=== PATIENT | female | born 1955 | race Caucasian/White ===

== ENCOUNTER 2017-04-26 06:20 | Emergency (ER) | payer OTHER ==
[2017-04-26] MEDS: KETOROLAC 60 MG INJ IM (06:44)
[2017-04-26] MEDS: morphine 4 MG/ML VIAL IM (07:32)
[2017-04-26] MEDS: ONDANSETRON (ODT) 4 MG TAB ODT (07:33)
== END 2017-04-26 08:31 | disposition home or self-care (01) ==
LOC: FTE 06:20
DX: S82.252A Displaced comminuted fracture of shaft of left tibia, initial encounter for closed fracture (principal); S82.452A Displaced comminuted fracture of shaft of left fibula, initial encounter for closed fracture; X58.XXXA Exposure to other specified factors, initial encounter; Y92.9 Unspecified place or not applicable
CPT/HCPCS: 29505; 73590; 73610-RT; 96372; 99284-25